=== PATIENT | female | born 1950 | race Caucasian/White ===

== ENCOUNTER 2020-11-19 12:42 | Outpatient (CLI) | payer MEDICARE | END 2020-11-19 12:43 | disposition home or self-care (01) | LOC: CSHULT 12:42 | PROVIDERS: ATTEND Internal Medicine Cardiovascular Disease | DX: E04.2 Nontoxic multinodular goiter (principal); R91.8 Other nonspecific abnormal finding of lung field; Z86.16 Personal history of COVID-19 | CPT/HCPCS: 71046; 76536 ==